=== PATIENT | male | born 1940 | race Caucasian/White ===

== ENCOUNTER 2017-09-03 11:58 | Inpatient (IN) | payer OTHER ==
[~2017-09-03] VITALS: Ht 177.8 cm; Wt 133.5 kg
[2017-09-03] MEDS ORDERED: SODIUM CHLORIDE FLUSH 10ML SYR IVF ONE (12:30)
[2017-09-03] MEDS ORDERED: PLEASE ENTER ALLERGIES MC SCH ×2 (12:30)
[2017-09-03] MEDS ORDERED: PLEASE ENTER HEIGHT AND WEIGHT MC SCH (12:30)
[2017-09-03 12:56] LABS: HEMOGLOBIN 13.1 g/dL (13.7-18.0); WHITE BLOOD COUNT 10.4 x10^3/uL (3.4-10)
[2017-09-03 13:05] LABS: BLOOD UREA NITROGEN 27 mg/dL (7-18)
[2017-09-03 13:10] LABS: ASPARTATE AMINO TRANSFERASE 13 U/L (15-37)
[2017-09-03 13:11] LABS: IS PT STATUS REG ER OR PRE ER? YES
[2017-09-03] MEDS ORDERED: OMNIPAQUE 350 MG/ML, 100ML BOTTLE ONE (13:55)
[2017-09-03] MEDS ORDERED: BISACODYL 10 MG SUPP PR PRN (17:30)
[2017-09-03] MEDS ORDERED: ONDANSETRON 2MG/ML, 2ML IVPush PRN (17:30)
[2017-09-03] MEDS ORDERED: ENALAPRILAT 1.25 MG/ML, 2ML IVPush PRN (17:30)
[2017-09-03] MEDS ORDERED: hydrALAzine 20 MG/ML, 1ML IVPush PRN (17:30)
[2017-09-03] MEDS ORDERED: OXYcodone IR 5MG TABLET PO PRN (17:30)
[2017-09-03] MEDS ORDERED: morphine SULFATE 10 MG/ML, 1ML IVPush PRN (17:30)
[2017-09-03] MEDS ORDERED: POLYETHYLENE GLYCOL 17 GM PACKET PO PRN (17:30)
[2017-09-03] MEDS ORDERED: AMLO10TA2 PO (17:40)
[2017-09-03] MEDS ORDERED: ASPI-650 PO (17:40)
[2017-09-03] MEDS ORDERED: LATA2.5D2 EACHEYE (17:40)
[2017-09-03] MEDS ORDERED: OMEP-110 PO (17:40)
[2017-09-03] MEDS ORDERED: FURO20TA3 PO (17:40)
[2017-09-03] MEDS ORDERED: METO25TA35 PO (17:40)
[2017-09-03] MEDS ORDERED: CALC-545 PO (17:40)
[2017-09-03] MEDS ORDERED: PRED5TAB PO (17:40)
[2017-09-03] MEDS ORDERED: CHOL2000 PO (17:40)
[2017-09-03] MEDS ORDERED: IBUP-1223 PO (17:40)
[2017-09-03] MEDS ORDERED: ABIR250T PO (17:40)
[2017-09-03] MEDS ORDERED: POTA99TA24 PO (17:40)
[2017-09-03] MEDS ORDERED: HUM100VI SQ (17:40)
[2017-09-03] MEDS ORDERED: METF500T4 PO (17:40)
[2017-09-03] MEDS: SODIUM CHLORIDE 0.9% 1,000 ML IV SCH (18:42)
[2017-09-03] MEDS ORDERED: METOPROLOL TARTRATE 25 MG TABLET ONE (19:21)
[2017-09-03 19:38] VITALS: BP 135/79
[2017-09-03] MEDS: VITAMIN D3 PO SCH (19:48)
[2017-09-03] MEDS: [UNRECOGNIZED DRUG - OTHER] PO SCH (19:48)
[2017-09-03] MEDS: HEPARIN 5,000 UNITS/ML, 1ML SQ SCH (19:48)
[2017-09-03] MEDS: METOPROLOL TARTRATE 25 MG TABLET PO SCH (19:48)
[2017-09-03] MEDS: CALCIUM CARBONATE PO SCH (19:48)
[2017-09-03 19:53] VITALS: BP 153/53
[2017-09-03 20:31] VITALS: BP 177/131
[2017-09-03 20:32] VITALS: BP 145/104
[2017-09-03] MEDS: INSULIN ASPART 100 UNITS/ML, PEN SQ-INSULIN SCH (21:27)
[2017-09-04 01:34] VITALS: BP 135/83
[2017-09-04] MEDS ORDERED: SITA25TA PO (02:14)
[2017-09-04] MEDS: ASPIRIN 325 MG TABLET EC PO SCH ×2 (02:58→21:16)
[2017-09-04] MEDS: SODIUM CHLORIDE 0.9% 1,000 ML IV SCH (03:55)
[2017-09-04] MEDS: HEPARIN 5,000 UNITS/ML, 1ML SQ SCH ×3 (03:55→21:10)
[2017-09-04 05:51] LABS: HEMATOCRIT 36.1 % (39.2-51.8); HEMOGLOBIN 11.9 g/dL (13.7-18.0); WHITE BLOOD COUNT 7.6 x10^3/uL (3.4-10)
[2017-09-04 06:32] LABS: ASPARTATE AMINO TRANSFERASE 11 U/L (15-37); BLOOD UREA NITROGEN 21 mg/dL (7-18)
[2017-09-04] MEDS: INSULIN ASPART 100 UNITS/ML, PEN SQ-INSULIN SCH ×4 (07:00→21:13)
[2017-09-04 08:00] VITALS: BP 145/76
[2017-09-04] MEDS: [UNRECOGNIZED DRUG - OTHER] PO SCH ×2 (08:08→21:00)
[2017-09-04] MEDS: TEMPLATE NON-FORMULARY MED. (Cholecalciferol (Vitamin D3)** (Vitamin D-3**) 2,000 UNIT) PO SCH (08:08)
[2017-09-04] MEDS: VITAMIN D3 PO SCH ×2 (08:08→21:00)
[2017-09-04] MEDS: CALCIUM CARBONATE PO SCH ×2 (08:08→21:00)
[2017-09-04] MEDS: SENNA/DOCUSATE TABLET PO SCH (08:49)
[2017-09-04] MEDS ORDERED: LATANOPROST OPHTH 0.005%, 2.5ML EACHEYE SCH (09:00)
[2017-09-04] MEDS ORDERED: ASPIRIN 325 MG TABLET EC PO SCH (09:00)
[2017-09-04] MEDS ORDERED: POTASSIUM CHLORIDE 20 MEQ TAB.ER.PRT PO ONE (10:00)
[2017-09-04] MEDS: OMEPRAZOLE 20 MG CAPSULE.DR PO SCH (10:20)
[2017-09-04] MEDS: METOPROLOL TARTRATE 25 MG TABLET PO SCH ×2 (10:20→21:12)
[2017-09-04] MEDS: AMLODIPINE 5 MG TABLET PO SCH (11:18)
[2017-09-04 14:05] VITALS: BP_SYST 133; BP_SYST 137; BP_SYST 144; BP_DIAS 75; BP_DIAS 79; BP_DIAS 81
[2017-09-04 19:55] VITALS: BP 164/83
[2017-09-04] MEDS ORDERED: SIMVASTATIN 20 MG TABLET PO SCH (21:00)
[2017-09-05 00:41] VITALS: BP 128/76
[2017-09-05 05:09] LABS: HEMATOCRIT 35.4 % (39.2-51.8); HEMOGLOBIN 11.6 g/dL (13.7-18.0); WHITE BLOOD COUNT 6.2 x10^3/uL (3.4-10)
[2017-09-05 05:22] LABS: ASPARTATE AMINO TRANSFERASE 14 U/L (15-37); BLOOD UREA NITROGEN 14 mg/dL (7-18)
[2017-09-05] MEDS: HEPARIN 5,000 UNITS/ML, 1ML SQ SCH ×2 (05:51→11:33)
[2017-09-05] MEDS: INSULIN ASPART 100 UNITS/ML, PEN SQ-INSULIN SCH ×3 (07:00→17:19)
[2017-09-05 08:25] VITALS: BP 141/80
[2017-09-05] MEDS: SENNA/DOCUSATE TABLET PO SCH (09:00)
[2017-09-05] MEDS: VITAMIN D3 PO SCH (09:00)
[2017-09-05] MEDS: [UNRECOGNIZED DRUG - OTHER] PO SCH (09:00)
[2017-09-05] MEDS: TEMPLATE NON-FORMULARY MED. (Cholecalciferol (Vitamin D3)** (Vitamin D-3**) 2,000 UNIT) PO SCH (09:00)
[2017-09-05] MEDS: CALCIUM CARBONATE PO SCH (09:00)
[2017-09-05] MEDS: METOPROLOL TARTRATE 25 MG TABLET PO SCH (10:39)
[2017-09-05] MEDS: AMLODIPINE 5 MG TABLET PO SCH (10:40)
[2017-09-05] MEDS: OMEPRAZOLE 20 MG CAPSULE.DR PO SCH (10:49)
[2017-09-05] MEDS ORDERED: SODIUM CHLORIDE 0.9% 1,000 ML IV SCH (11:00)
[2017-09-05 11:25] VITALS: BP 144/85
[2017-09-05 11:26] VITALS: BP 159/85
[2017-09-05 11:30] VITALS: BP 153/80
[2017-09-05] MEDS ORDERED: POTA20PA25 PO (15:25)
[2017-09-05 15:37] VITALS: BP 148/73
== END 2017-09-05 20:50 | disposition home or self-care (01) | DRG 641 ==
LOC: ED 14:48 → EDIP 14:49 → ED 15:27 → 5SO 16:32
PROVIDERS: ADMIT Hospitalist; ATTEND Hospitalist
PROC: 5A09357 Assistance with Respiratory Ventilation, Less than 24 Consecutive Hours, Continuous Positive Airway Pressure (ICD-10-PCS; principal; 2017-09-04)
DX: E86.0 Dehydration (principal); C79.51 Secondary malignant neoplasm of bone; I25.3 Aneurysm of heart; E11.9 Type 2 diabetes mellitus without complications; E78.5 Hyperlipidemia, unspecified; D72.829 Elevated white blood cell count, unspecified; J44.9 Chronic obstructive pulmonary disease, unspecified; H40.9 Unspecified glaucoma; I10 Essential (primary) hypertension; Z85.46 Personal history of malignant neoplasm of prostate; Z85.830 Personal history of malignant neoplasm of bone; Z86.12 Personal history of poliomyelitis; Z87.891 Personal history of nicotine dependence; Z90.79 Acquired absence of other genital organ(s); Z92.21 Personal history of antineoplastic chemotherapy; Z92.3 Personal history of irradiation; Z90.49 Acquired absence of other specified parts of digestive tract; Z88.2 Allergy status to sulfonamides; Z88.8 Allergy status to other drugs, medicaments and biological substances; Z79.899 Other long term (current) drug therapy; Z79.82 Long term (current) use of aspirin
CPT/HCPCS: 36415; 70450; 70551; 71010; 71275; 80053; 80061; 81001; 82306; 82607; 82962; 83036; 83735; 83880; 84439; 84443; 84484; 85025; 85610; 85730; 87040; 93005; 93306; 93880; 99285; J1644; J1815; Q9967; J7030; J7512

== ENCOUNTER 2019-04-23 20:47 | Emergency (ER) | payer OTHER, MEDICARE ==
[~2019-04-23] VITALS: Ht 182.9 cm; Wt 122.0 kg
[~2019-04-23 20:47] MED LIST: ABIR250T PO; AMLO10TA8 PO; ASPI-650 PO; CALC-545 PO; CHOL2000 PO; FURO20TA3 PO; HUM100VI SQ; IBUP-1223 PO; LATA2.5D2 EACHEYE; METF500T17 PO; METO25TA35 PO; OMEP-110 PO; POTA20PA25 PO; POTA99TA24 PO; PRED5TAB PO; SITA25TA PO
[2019-04-23] MEDS ORDERED: KETOROLAC 30 MG/1 ML IM ONE (21:30)
--- NOTE | 2019-04-23 21:31 | NUR ---
Pt taken to [facility] on [facility] with hallie.
[2019-04-23] MEDS ORDERED: KETOROLAC 60 MG/2 ML ONE (21:35)
--- NOTE | 2019-04-23 22:18 | NUR ---
Pt resting comfortably on gurney with care transport nurse at bedside. Pt up for recheck at this time.
[2019-04-23 23:07] VITALS: BP 149/59
== END 2019-04-23 23:23 | disposition home or self-care (01) ==
LOC: ED 23:12
DX: M25.551 Pain in right hip (principal); M54.2 Cervicalgia; C79.82 Secondary malignant neoplasm of genital organs; C41.4 Malignant neoplasm of pelvic bones, sacrum and coccyx; M89.751 Major osseous defect, right pelvic region and thigh; C79.51 Secondary malignant neoplasm of bone; Z87.891 Personal history of nicotine dependence; J44.9 Chronic obstructive pulmonary disease, unspecified; I10 Essential (primary) hypertension; E11.9 Type 2 diabetes mellitus without complications; Z88.5 Allergy status to narcotic agent; Z88.8 Allergy status to other drugs, medicaments and biological substances; Z88.1 Allergy status to other antibiotic agents
CPT/HCPCS: 72125; 72192; 96372; 99284; J1885

== ENCOUNTER 2019-11-10 22:25 | Inpatient (IN) | payer MEDICARE ==
[~2019-11-10] VITALS: Ht 177.8 cm; Wt 117.9 kg
[2019-11-10 22:53] LABS: BASOPHILS # (AUTO) 0.02 x10^3/uL (0-0.1); BASOPHILS % (AUTO) 0 % (0-1); EOSINOPHILS # (AUTO) 0.32 x10^3/uL (0-0.4); EOSINOPHILS % (AUTO) 7 % (1-7); LYMPHOCYTES # (AUTO) 0.63 x10^3/uL (1-3.4); LYMPHOCYTES % (AUTO) 13 % (22-44); MD NO; MEAN CORPUSCULAR HEMOGLOBIN 29.7 pg (27.5-34.5); MEAN CORPUSCULAR HGB CONC 32.8 g/dL (33.2-36.2); MEAN CORPUSCULAR VOLUME 90.6 fL (81-97); MEAN PLATELET VOLUME 7.1 fL (7.4-10.4); MONOCYTES # (AUTO) 0.38 x10^3/uL (0.2-0.8); MONOCYTES % (AUTO) 8 % (2-9); NEUTROPHILS # (AUTO) 3.58 x10^3/uL (1.8-6.8); NEUTROPHILS % (AUTO) 73 % (42-75); PLATELET COUNT 439 x10^3/uL (130-400); RED BLOOD COUNT 3.61 x10^6/uL (4.38-5.82); RED CELL DISTRIBUTION WIDTH 17.8 % (9.4-14.8)
[2019-11-10] MEDS ORDERED: PANTOPRAZOLE 80 MG in SODIUM CHLORIDE 0.9% 50 ML IV ONE (23:00)
[2019-11-10] MEDS ORDERED: PANTOPRAZOLE 80 MG in SODIUM CHLORIDE 0.9% 100 ML IV SCH (23:00)
[2019-11-10 23:05] LABS: ALANINE AMINOTRANSFERASE 28 U/L (12-78); ALBUMIN 2.5 g/dL (3.4-5.0); ANION GAP 10 mmol/L (5-15); CHLORIDE 107 mmol/L (98-107); CREATININE 0.96 mg/dL (0.7-1.3)
[2019-11-10 23:10] LABS: ALKALINE PHOSPHATASE 94 U/L (45-117); BILIRUBIN,TOTAL 0.3 mg/dL (0.2-1.0); TOTAL PROTEIN 7.2 g/dL (6.4-8.2); TROPONIN I < 0.015 ng/mL (0.000-0.045)
[2019-11-11] MEDS ORDERED: OMNIPAQUE 350 MG/ML, 100ML BOTTLE ONE
--- NOTE | 2019-11-11 00:06 | NUR ---
Patient BIB [facility] from home for blood in stool x1-2 weeks. Patient states he saw his PCP for the same; it was confirmed that he had blood in his stool and he was referred to GI. Since then, patient has not been able to get into GI for an appt and the bleeding has continued and is now weak. He has mild cramping in his low abd. He states last week, he "lost a couple days." It was Wednesday and he went to bed. When he woke up, it was Wednesday; he is not sure what happened in those days. Patient is in NAD. Respirations even and unlabored.
[2019-11-11] MEDS ORDERED: CEFTRIAXONE PMX 1GM/50ML 50 ML ONE (01:16)
[2019-11-11] MEDS ORDERED: CEFTRIAXONE PMX 1GM/50ML 50 ML IV ONE (01:30)
[2019-11-11] MEDS ORDERED: AZITHROMYCIN 500 MG in SODIUM CHLORIDE 0.9% 250 ML IV ONE (01:30)
[2019-11-11] MEDS ORDERED: PANTOPRAZOLE 80 MG in SODIUM CHLORIDE 0.9% 100 ML IV SCH (02:30)
[2019-11-11] MEDS ORDERED: hydrALAzine 20 MG/ML, 1ML IV PRN (02:30)
[2019-11-11] MEDS: AZITHROMYCIN 500 MG in SODIUM CHLORIDE 0.9% 250 ML IV SCH (02:34)
--- NOTE | 2019-11-11 04:21 | NUR ---
Report given to Lorene. Patient to be transferred to room 438.
[2019-11-11 04:46] VITALS: BP 146/91
[2019-11-11] MEDS: METOPROLOL TARTRATE 25 MG TABLET PO SCH ×2 (05:46→18:05)
[2019-11-11] MEDS: GUAIFENESIN 200 MG TABLET PO SCH ×4 (05:46→22:14)
[2019-11-11] MEDS: CEFTRIAXONE PMX 2GM/50ML 50 ML IV SCH (06:18)
[2019-11-11] MEDS: INSULIN LISPRO 100 UNITS/ML, PEN SQ-INSULIN SCH ×4 (07:00→21:00)
[2019-11-11 07:09] VITALS: BP 119/60
[2019-11-11] MEDS: LATANOPROST OPHTH 0.005%, 2.5ML EACHEYE SCH (09:00)
[2019-11-11] MEDS: AMLODIPINE 10 MG TAB PO SCH ×2 (09:00→10:35)
[2019-11-11] MEDS ORDERED: MIDAZOLAM 1 MG/ML, 5ML ONE (09:11)
[2019-11-11] MEDS ORDERED: FENTANYL PF 100 MCG/2ML ONE (09:11)
[2019-11-11 10:25] VITALS: BP 141/72
[2019-11-11] MEDS: POTASSIUM CHLORIDE 20 MEQ PACKET PO SCH (10:35)
[2019-11-11] MEDS: CHOLECALCIFEROL 1,000 UNIT TABLET PO SCH (10:35)
[2019-11-11] MEDS: PANTOPRAZOLE 40 MG IV IVPush SCH ×2 (13:25→23:50)
[2019-11-11 14:00] VITALS: BP 145/75
[2019-11-11] MEDS ORDERED: GOLYTELY 4,000ML ORAL.SOL PO ONE (18:00)
[2019-11-11 18:33] VITALS: BP 151/75
[2019-11-11] MEDS: TEMPLATE NON-FORMULARY MED. (Abiraterone Acetate** (Zytiga**) 1,000 MG) HOMEMEDPO SCH (21:00)
[2019-11-12 00:28] VITALS: BP 121/68
[2019-11-12] MEDS: AZITHROMYCIN 500 MG in SODIUM CHLORIDE 0.9% 250 ML IV SCH (02:33)
[2019-11-12 05:11] LABS: BASOPHILS # (AUTO) 0.01 x10^3/uL (0-0.1); BASOPHILS % (AUTO) 0 % (0-1); EOSINOPHILS # (AUTO) 0.39 x10^3/uL (0-0.4); EOSINOPHILS % (AUTO) 9 % (1-7); LYMPHOCYTES # (AUTO) 0.54 x10^3/uL (1-3.4); LYMPHOCYTES % (AUTO) 12 % (22-44); MD NO; MEAN CORPUSCULAR HEMOGLOBIN 29.4 pg (27.5-34.5); MEAN CORPUSCULAR HGB CONC 32.3 g/dL (33.2-36.2); MEAN CORPUSCULAR VOLUME 90.9 fL (81-97); MEAN PLATELET VOLUME 7.3 fL (7.4-10.4); MONOCYTES # (AUTO) 0.35 x10^3/uL (0.2-0.8); MONOCYTES % (AUTO) 8 % (2-9); NEUTROPHILS # (AUTO) 3.26 x10^3/uL (1.8-6.8); NEUTROPHILS % (AUTO) 72 % (42-75); PLATELET COUNT 416 x10^3/uL (130-400); RED CELL DISTRIBUTION WIDTH 17.9 % (9.4-14.8)
[2019-11-12 05:22] LABS: ANION GAP 9 mmol/L (5-15); CALCIUM 8.1 mg/dL (8.5-10.1); CHLORIDE 106 mmol/L (98-107); CREATININE 0.71 mg/dL (0.7-1.3)
[2019-11-12] MEDS: CEFTRIAXONE PMX 2GM/50ML 50 ML IV SCH (06:07)
[2019-11-12] MEDS: METOPROLOL TARTRATE 25 MG TABLET PO SCH ×2 (06:07→17:13)
[2019-11-12] MEDS: INSULIN LISPRO 100 UNITS/ML, PEN SQ-INSULIN SCH ×4 (07:00→19:34)
[2019-11-12] MEDS ORDERED: MIDAZOLAM 1 MG/ML, 5ML ONE (07:47)
[2019-11-12] MEDS ORDERED: FENTANYL PF 100 MCG/2ML ONE (07:47)
[2019-11-12 07:51] VITALS: BP 124/65
[2019-11-12] MEDS: CHOLECALCIFEROL 1,000 UNIT TABLET PO SCH (11:12)
[2019-11-12] MEDS: GUAIFENESIN 200 MG TABLET PO SCH ×3 (11:12→21:12)
[2019-11-12] MEDS: LATANOPROST OPHTH 0.005%, 2.5ML EACHEYE SCH (11:13)
[2019-11-12] MEDS: AMLODIPINE 10 MG TAB PO SCH (11:13)
[2019-11-12] MEDS: PANTOPRAZOLE 40 MG IV IVPush SCH ×2 (11:13→23:36)
[2019-11-12] MEDS: POTASSIUM CHLORIDE 20 MEQ PACKET PO SCH (11:21)
[2019-11-12 13:31] VITALS: BP 129/75
[2019-11-12 14:12] LABS: TROPONIN I < 0.015 ng/mL (0.000-0.045)
[2019-11-12 14:44] LABS: FREE T4 (FREE THYROXINE) 1.15 ng/dL (0.76-1.46)
[2019-11-12 16:28] LABS: TROPONIN I < 0.015 ng/mL (0.000-0.045)
[2019-11-12 18:57] VITALS: BP 115/71
[2019-11-12] MEDS: TEMPLATE NON-FORMULARY MED. (Abiraterone Acetate** (Zytiga**) 1,000 MG) HOMEMEDPO SCH (21:00)
[2019-11-13 01:08] VITALS: BP 125/71
[2019-11-13] MEDS: AZITHROMYCIN 500 MG in SODIUM CHLORIDE 0.9% 250 ML IV SCH (02:40)
[2019-11-13 05:28] LABS: BASOPHILS # (AUTO) 0.02 x10^3/uL (0-0.1); BASOPHILS % (AUTO) 0 % (0-1); EOSINOPHILS # (AUTO) 0.41 x10^3/uL (0-0.4); EOSINOPHILS % (AUTO) 10 % (1-7); LYMPHOCYTES # (AUTO) 0.52 x10^3/uL (1-3.4); LYMPHOCYTES % (AUTO) 12 % (22-44); MD NO; MEAN CORPUSCULAR HEMOGLOBIN 29.5 pg (27.5-34.5); MEAN CORPUSCULAR HGB CONC 32.5 g/dL (33.2-36.2); MEAN CORPUSCULAR VOLUME 90.8 fL (81-97); MEAN PLATELET VOLUME 7.2 fL (7.4-10.4); MONOCYTES % (AUTO) 7 % (2-9); NEUTROPHILS # (AUTO) 3.08 x10^3/uL (1.8-6.8); NEUTROPHILS % (AUTO) 71 % (42-75); PLATELET COUNT 411 x10^3/uL (130-400); RED BLOOD COUNT 3.28 x10^6/uL (4.38-5.82); RED CELL DISTRIBUTION WIDTH 17.6 % (9.4-14.8)
[2019-11-13 05:46] LABS: ANION GAP 7 mmol/L (5-15); CALCIUM 8.3 mg/dL (8.5-10.1); CHLORIDE 108 mmol/L (98-107); CREATININE 0.76 mg/dL (0.7-1.3)
[2019-11-13] MEDS: CEFTRIAXONE PMX 2GM/50ML 50 ML IV SCH (06:17)
[2019-11-13] MEDS: METOPROLOL TARTRATE 25 MG TABLET PO SCH (06:23)
[2019-11-13 07:15] VITALS: BP 130/74
[2019-11-13] MEDS: INSULIN LISPRO 100 UNITS/ML, PEN SQ-INSULIN SCH ×3 (07:21→15:19)
[2019-11-13] MEDS: POTASSIUM CHLORIDE 20 MEQ PACKET PO SCH (08:10)
[2019-11-13] MEDS: LATANOPROST OPHTH 0.005%, 2.5ML EACHEYE SCH (08:11)
[2019-11-13] MEDS: GUAIFENESIN 200 MG TABLET PO SCH ×2 (08:11→15:19)
[2019-11-13] MEDS: CHOLECALCIFEROL 1,000 UNIT TABLET PO SCH (08:11)
[2019-11-13] MEDS: AMLODIPINE 10 MG TAB PO SCH (08:11)
[2019-11-13] MEDS ORDERED: POTASSIUM CHLORIDE 20 MEQ TAB.ER.PRT PO ONE (09:00)
[2019-11-13] MEDS ORDERED: MAGNESIUM SULFATE PMX 2GM/50ML 50 ML IV ONE (09:30)
[2019-11-13] MEDS: PANTOPRAZOLE 40 MG IV IVPush SCH (11:06)
[2019-11-13 14:13] VITALS: BP 145/77
[2019-11-13] MEDS ORDERED: CEFD300C37 PO (14:26)
[2019-11-13] MEDS ORDERED: PANT40TA3 PO ×2 (14:28)
[2019-11-13] MEDS ORDERED: PANTOPROZOLE 40MG TABLET PO SCH (21:00)
[2019-11-14] MEDS ORDERED: POTA20TA89 PO (16:51)
[2019-11-14] MEDS ORDERED: CELE100C PO (16:52)
[2019-11-14] MEDS ORDERED: DENO120V SQ (16:54)
[2019-11-14] MEDS ORDERED: OMEG-72 PO (16:57)
[2019-11-14] MEDS ORDERED: VITA1TAB19 PO (16:58)
== END 2019-11-13 17:48 | disposition home health service (06) | DRG 377 ==
LOC: ED 23:19 → EDIP 11-11 01:26 → 4NW 11-11 04:42
PROVIDERS: ADMIT Internal Medicine; ATTEND Internal Medicine
PROC: 5A09357 Assistance with Respiratory Ventilation, Less than 24 Consecutive Hours, Continuous Positive Airway Pressure (ICD-10-PCS; 2019-11-11)
PROC: 0DJ08ZZ Inspection of Upper Intestinal Tract, Via Natural or Artificial Opening Endoscopic (ICD-10-PCS; principal; 2019-11-11 09:00)
PROC: 0DBK8ZZ Excision of Ascending Colon, Via Natural or Artificial Opening Endoscopic (ICD-10-PCS; 2019-11-12)
PROC: 0DBL8ZZ Excision of Transverse Colon, Via Natural or Artificial Opening Endoscopic (ICD-10-PCS; 2019-11-12)
PROC: 0DBH8ZZ Excision of Cecum, Via Natural or Artificial Opening Endoscopic (ICD-10-PCS; 2019-11-12)
PROC: 5A09357 Assistance with Respiratory Ventilation, Less than 24 Consecutive Hours, Continuous Positive Airway Pressure (ICD-10-PCS; 2019-11-12)
PROC: 5A09357 Assistance with Respiratory Ventilation, Less than 24 Consecutive Hours, Continuous Positive Airway Pressure (ICD-10-PCS; 2019-11-13)
DX: K57.31 Diverticulosis of large intestine without perforation or abscess with bleeding (principal); J18.9 Pneumonia, unspecified organism; J96.01 Acute respiratory failure with hypoxia; I50.32 Chronic diastolic (congestive) heart failure; C79.51 Secondary malignant neoplasm of bone; J44.0 Chronic obstructive pulmonary disease with (acute) lower respiratory infection; D64.9 Anemia, unspecified; E66.01 Morbid (severe) obesity due to excess calories; K31.7 Polyp of stomach and duodenum; Z88.2 Allergy status to sulfonamides; Z88.8 Allergy status to other drugs, medicaments and biological substances; C61 Malignant neoplasm of prostate; E11.9 Type 2 diabetes mellitus without complications; E78.5 Hyperlipidemia, unspecified; E83.42 Hypomagnesemia; E87.6 Hypokalemia; I11.0 Hypertensive heart disease with heart failure; K63.5 Polyp of colon; T45.1X5A Adverse effect of antineoplastic and immunosuppressive drugs, initial encounter; Y92.89 Other specified places as the place of occurrence of the external cause; Z79.82 Long term (current) use of aspirin; Z80.0 Family history of malignant neoplasm of digestive organs; Z80.51 Family history of malignant neoplasm of kidney; Z82.49 Family history of ischemic heart disease and other diseases of the circulatory system; Z86.12 Personal history of poliomyelitis; Z87.891 Personal history of nicotine dependence; Z90.79 Acquired absence of other genital organ(s); Z68.37 Body mass index [BMI] 37.0-37.9, adult
CPT/HCPCS: 36415; 71045; 71275; 80048; 80053; 82962; 83690; 83735; 84100; 84439; 84443; 84484; 85014; 85018; 85025; 86850; 86900; 87040; 88305; 93005; 96374; G0378; J0456; J0696; J2250; J3010; Q9967; C9113; J3475; J7050; J7512

== ENCOUNTER 2019-11-14 16:29 | Emergency (ER) | payer MEDICARE ==
[~2019-11-14] VITALS: Ht 177.8 cm; Wt 118.0 kg
[~2019-11-14 16:29] MED LIST changes: +CEFD300C37 PO; +PANT40TA3 PO
[2019-11-14] MEDS ORDERED: POTA20TA89 PO (16:51)
[2019-11-14] MEDS ORDERED: CELE100C PO (16:52)
[2019-11-14] MEDS ORDERED: DENO120V SQ (16:54)
[2019-11-14] MEDS ORDERED: OMEG-72 PO (16:57)
[2019-11-14] MEDS ORDERED: VITA1TAB19 PO (16:58)
[2019-11-14 17:16] LABS: ALBUMIN 2.8 g/dL (3.4-5.0); ANION GAP 5 mmol/L (5-15); CALCIUM 8.8 mg/dL (8.5-10.1); CHLORIDE 111 mmol/L (98-107); CREATININE 0.88 mg/dL (0.7-1.3)
[2019-11-14 17:20] LABS: BASOPHILS # (AUTO) 0.02 x10^3/uL (0-0.1); BASOPHILS % (AUTO) 0 % (0-1); EOSINOPHILS # (AUTO) 0.12 x10^3/uL (0-0.4); EOSINOPHILS % (AUTO) 2 % (1-7); LYMPHOCYTES # (AUTO) 0.49 x10^3/uL (1-3.4); LYMPHOCYTES % (AUTO) 10 % (22-44); MD NO; MEAN CORPUSCULAR HEMOGLOBIN 29.3 pg (27.5-34.5); MEAN CORPUSCULAR HGB CONC 32.4 g/dL (33.2-36.2); MEAN CORPUSCULAR VOLUME 90.5 fL (81-97); MEAN PLATELET VOLUME 6.6 fL (7.4-10.4); MONOCYTES % (AUTO) 6 % (2-9); NEUTROPHILS # (AUTO) 4.21 x10^3/uL (1.8-6.8); NEUTROPHILS % (AUTO) 82 % (42-75); PLATELET COUNT 507 x10^3/uL (130-400); RED BLOOD COUNT 3.76 x10^6/uL (4.38-5.82)
[2019-11-14 18:24] VITALS: BP 149/73
--- NOTE | 2019-11-14 18:25 | NUR ---
Patient bgiven discharge instructions and they have confirmed that they understand the instructions. Patient leaving with family member.
== END 2019-11-14 18:26 | disposition home or self-care (01) ==
LOC: ED 18:15
DX: K92.2 Gastrointestinal hemorrhage, unspecified (principal); I10 Essential (primary) hypertension; E11.9 Type 2 diabetes mellitus without complications; J44.9 Chronic obstructive pulmonary disease, unspecified
CPT/HCPCS: 36415; 80048; 82040; 85025; 93005; 99284

== ENCOUNTER 2020-03-21 15:17 | Observation (INO) | payer MEDICARE, OTHER ==
[~2020-03-21] VITALS: Ht 177.8 cm; Wt 115.6 kg
[~2020-03-21 15:17] MED LIST changes: +CELE100C PO; +DENO120V SQ; +OMEG-72 PO; +POTA20TA89 PO; +VITA1TAB19 PO
--- NOTE | 2020-03-21 15:32 | NUR ---
BIB [facility] FROM HOME. NURSE AT HOUSE WHEN PT STATED SUDDEN ONSENT CP, INDIGESTION, LIGHT HEADED. EFFICIENCY CLERK: NURSE 324 ASA, [facility] PIV 20G RAC. HX UNSTABLE ANGINA. PT CONNECTED TO MONITORING. CALL LIGHT IN REACH. PROVIDER AT BEDSIDE.
[2020-03-21] MEDS ORDERED: IBUP-1223 PO (15:51)
[2020-03-21] MEDS ORDERED: ASCO500T8 PO (15:51)
[2020-03-21] MEDS ORDERED: POTA20TA89 PO (15:51)
[2020-03-21] MEDS ORDERED: EZET10TA70 PO (15:51)
[2020-03-21] MEDS ORDERED: KETO10TA PO (15:51)
[2020-03-21 16:02] LABS: BASOPHILS # (AUTO) 0.05 x10^3/uL (0-0.1); BASOPHILS % (AUTO) 1 % (0-1); EOSINOPHILS # (AUTO) 0.19 x10^3/uL (0-0.4); EOSINOPHILS % (AUTO) 3 % (1-7); LYMPHOCYTES # (AUTO) 0.96 x10^3/uL (1-3.4); LYMPHOCYTES % (AUTO) 16 % (22-44); MD NO; MEAN CORPUSCULAR HEMOGLOBIN 29.7 pg (27.5-34.5); MEAN CORPUSCULAR HGB CONC 32.6 g/dL (33.2-36.2); MEAN CORPUSCULAR VOLUME 91.2 fL (81-97); MEAN PLATELET VOLUME 6.4 fL (7.4-10.4); MONOCYTES # (AUTO) 0.43 x10^3/uL (0.2-0.8); MONOCYTES % (AUTO) 7 % (2-9); NEUTROPHILS # (AUTO) 4.37 x10^3/uL (1.8-6.8); NEUTROPHILS % (AUTO) 73 % (42-75); PLATELET COUNT 461 x10^3/uL (130-400); RED BLOOD COUNT 3.73 x10^6/uL (4.38-5.82); RED CELL DISTRIBUTION WIDTH 17.5 % (9.4-14.8)
[2020-03-21 16:10] LABS: ALBUMIN 3.1 g/dL (3.4-5.0); ANION GAP 9 mmol/L (5-15); CALCIUM 8.8 mg/dL (8.5-10.1); CHLORIDE 106 mmol/L (98-107)
[2020-03-21 16:16] LABS: CREATININE 0.96 mg/dL (0.7-1.3); TROPONIN I < 0.015 ng/mL (0.000-0.045)
--- NOTE | 2020-03-21 16:26 | NUR ---
PT RESTING COMFORTABLY ON GURNEY, WATCHING TV.
--- NOTE | 2020-03-21 16:34 | NUR ---
ALL RESULTS ARE BACK AT THIS TIME. CHART UP FOR RECHECK.
--- NOTE | 2020-03-21 16:36 | NUR ---
PT TO BE ADMITTED
[2020-03-21] MEDS ORDERED: OMNIPAQUE 350 MG/ML, 100ML BOTTLE ONE (17:01)
--- NOTE | 2020-03-21 17:46 | NUR ---
ADDIE MCCORD DELIVERED. HOSPITALIST AT BEDSIDE FOR ASSESSMENT.
--- NOTE | 2020-03-21 17:53 | NUR ---
REPORT GIVEN TO KATIA LANTIGUA
[2020-03-21] MEDS ORDERED: ACETAMINOPHEN 325 MG TABLET PO PRN (18:00)
[2020-03-21] MEDS ORDERED: POLYETHYLENE GLYCOL 17 GM PACKET PO PRN (18:00)
[2020-03-21] MEDS ORDERED: DOCUSATE 100 MG CAPSULE PO PRN (18:00)
[2020-03-21] MEDS ORDERED: ENALAPRILAT 1.25 MG/ML, 2ML IVPush PRN (18:00)
[2020-03-21] MEDS ORDERED: GLUCAGON 1 MG IM PRN (18:00)
[2020-03-21] MEDS ORDERED: DEXTROSE 4 GM TAB.CHEW PO PRN (18:00)
[2020-03-21] MEDS ORDERED: hydrALAzine 20 MG/ML, 1ML IVPush PRN (18:00)
[2020-03-21] MEDS ORDERED: ONDANSETRON 2MG/ML, 2ML IVPush PRN (18:00)
[2020-03-21] MEDS ORDERED: SODIUM CHLORIDE 0.9% 1,000 ML IV SCH (18:00)
[2020-03-21] MEDS ORDERED: DEXTROSE 50%, 50ML SYRINGE IVPush PRN (18:00)
[2020-03-21] MEDS ORDERED: KETOROLAC 30 MG/1 ML IV PRN (18:00)
[2020-03-21] MEDS ORDERED: BISACODYL 10 MG SUPP PR PRN (18:00)
[2020-03-21] MEDS ORDERED: NITROGLYCERIN 0.4 MG BOTTLE (25 TABS) SL PRN (18:00)
[2020-03-21] MEDS ORDERED: ONDANSETRON ODT 4 MG PO PRN (18:00)
[2020-03-21 18:22] VITALS: BP 155/73
[2020-03-21 18:25] VITALS: BP 155/73
[2020-03-21 18:36] LABS: ALANINE AMINOTRANSFERASE 16 U/L (12-78); ALBUMIN 3.2 g/dL (3.4-5.0)
[2020-03-21 18:40] LABS: ALKALINE PHOSPHATASE 67 U/L (45-117); BILIRUBIN,TOTAL 0.2 mg/dL (0.2-1.0); TOTAL PROTEIN 7.6 g/dL (6.4-8.2); TROPONIN I < 0.015 ng/mL (0.000-0.045)
[2020-03-21 18:43] LABS: BILIRUBIN, DIRECT < 0.1 mg/dL (0.1-0.2); BILIRUBIN,INDIRECT 0.1 mg/dL (0.0-2.0)
[2020-03-21] MEDS ORDERED: ENOXAPARIN 40 MG/0.4 ML SQ SCH (19:00)
[2020-03-21] MEDS: INSULIN LISPRO 100 UNITS/ML, PEN SQ-INSULIN SCH (21:00)
[2020-03-21] MEDS: CALCIUM/VITAMIN D3 250-125 TABLET PO SCH (21:07)
[2020-03-21] MEDS: SODIUM CHLORIDE FLUSH 10ML SYR IVF SCH (21:08)
[2020-03-21] MEDS ORDERED: LATANOPROST OPHTH 0.005%, 2.5ML EACHEYE SCH (22:00)
[2020-03-22 00:35] VITALS: BP 121/67
[2020-03-22 00:36] LABS: TROPONIN I < 0.015 ng/mL (0.000-0.045)
[2020-03-22 06:08] LABS: BASOPHILS # (AUTO) 0.02 x10^3/uL (0-0.1); BASOPHILS % (AUTO) 0 % (0-1); EOSINOPHILS # (AUTO) 0.25 x10^3/uL (0-0.4); EOSINOPHILS % (AUTO) 6 % (1-7); LYMPHOCYTES # (AUTO) 0.61 x10^3/uL (1-3.4); LYMPHOCYTES % (AUTO) 14 % (22-44); MD NO; MEAN CORPUSCULAR HEMOGLOBIN 28.9 pg (27.5-34.5); MEAN CORPUSCULAR HGB CONC 32.2 g/dL (33.2-36.2); MEAN CORPUSCULAR VOLUME 89.9 fL (81-97); MEAN PLATELET VOLUME 6.4 fL (7.4-10.4); MONOCYTES # (AUTO) 0.34 x10^3/uL (0.2-0.8); MONOCYTES % (AUTO) 8 % (2-9); NEUTROPHILS # (AUTO) 3.27 x10^3/uL (1.8-6.8); NEUTROPHILS % (AUTO) 73 % (42-75); PLATELET COUNT 406 x10^3/uL (130-400); RED BLOOD COUNT 3.59 x10^6/uL (4.38-5.82); RED CELL DISTRIBUTION WIDTH 17.4 % (9.4-14.8)
[2020-03-22 06:11] LABS: ANION GAP 11 mmol/L (5-15); CALCIUM 9.1 mg/dL (8.5-10.1); CHLORIDE 106 mmol/L (98-107); CREATININE 0.74 mg/dL (0.7-1.3)
[2020-03-22] MEDS: INSULIN LISPRO 100 UNITS/ML, PEN SQ-INSULIN SCH ×3 (07:00→16:00)
[2020-03-22] MEDS: CALCIUM/VITAMIN D3 250-125 TABLET PO SCH (08:17)
[2020-03-22] MEDS ORDERED: REGADENOSON 0.4 MG/5 ML SYRINGE ONE (08:37)
[2020-03-22] MEDS: SODIUM CHLORIDE FLUSH 10ML SYR IVF SCH (09:00)
[2020-03-22] MEDS ORDERED: AMLODIPINE 10 MG TAB PO SCH (09:00)
[2020-03-22] MEDS ORDERED: EZETIMIBE 10 MG TABLET PO SCH (09:00)
[2020-03-22] MEDS ORDERED: ASCORBIC ACID 500 MG TABLET PO SCH (09:00)
[2020-03-22] MEDS ORDERED: OMEPRAZOLE 20 MG CAPSULE.DR PO SCH (09:00)
[2020-03-22 13:20] VITALS: BP 151/77
--- NOTE | 2020-03-22 13:31 | NUR ---
Do not anticipate need for COOK MORNING intervention at time of discharge. Addendum: 03/22/20 at 1331 by Comfort YOUNG Amended: Links added.
== END 2020-03-22 16:46 | disposition home or self-care (01) ==
LOC: ED 16:58 → INTOOBSV 17:17 → EDIP 17:17 → 5SO 18:20 → DCLOUNGE 03-22 16:34
PROVIDERS: ADMIT Internal Medicine; ATTEND Internal Medicine
DX: R07.89 Other chest pain (principal); R10.11 Right upper quadrant pain; E86.0 Dehydration; R19.7 Diarrhea, unspecified; D64.9 Anemia, unspecified; D47.3 Essential (hemorrhagic) thrombocythemia; E11.9 Type 2 diabetes mellitus without complications; I25.10 Atherosclerotic heart disease of native coronary artery without angina pectoris; I25.2 Old myocardial infarction; J44.9 Chronic obstructive pulmonary disease, unspecified; C61 Malignant neoplasm of prostate; C79.51 Secondary malignant neoplasm of bone; I11.0 Hypertensive heart disease with heart failure; I50.30 Unspecified diastolic (congestive) heart failure; R59.1 Generalized enlarged lymph nodes; E66.01 Morbid (severe) obesity due to excess calories; K92.2 Gastrointestinal hemorrhage, unspecified; Z68.35 Body mass index [BMI] 35.0-35.9, adult; Z87.891 Personal history of nicotine dependence; Z86.12 Personal history of poliomyelitis
CPT/HCPCS: 36415; 71045; 71275; 76705; 78452; 80048; 80076; 82040; 82962; 84484; 85025; 85379; 92610; 93005; 93017; 96360; 96361; 96372; 99285; A9502; G0378; J1650; J1815; J2785; J7030; Q9967

== ENCOUNTER 2020-08-14 12:22 | Emergency (ER) | payer MEDICARE ==
[~2020-08-14] VITALS: Ht 175.3 cm; Wt 120.0 kg
[~2020-08-14 12:22] MED LIST changes: +ASCO500T8 PO; +EZET10TA70 PO; +KETO10TA PO
--- NOTE | 2020-08-14 12:37 | NUR ---
BREAK RN: THIS IS A 80 YEAR OLD MALE WHO WAS BIB BY AMBULANCE DUE TO INCREASE SOB, INCREASE OXYGEN DEMAND, (COPD ON 3LNC, C-PAP NOC) AND LOOSE STOOL. PT HAS HOMEHEALTH RN THAT ADVISED HIM TO GO TO ED. PT PLACED ON COLLECTIONS ASSISTANT IRREGULAR WITH PVCS, CONTINOUS SP02 AT 3LNC AT 94%, AND CYCLE VS.
--- NOTE | 2020-08-14 12:41 | NUR ---
BREAK RN: PT HAS A HX OF PROSTATE CA WITH METS TO BONES, COPD, DM II, SLEEP APNEA, HTN, POLIO WHEN HE WAS 8 YEARS OLD
[2020-08-14] MEDS ORDERED: SODIUM CHLORIDE 0.9% 1,000 ML IV ONE (13:00)
[2020-08-14] MEDS ORDERED: SODIUM CHLORIDE FLUSH 10ML SYR IVF ONE (13:00)
[2020-08-14 13:18] LABS: BASOPHILS % (AUTO) 1 % (0-1); EOSINOPHILS % (AUTO) 1 % (1-7); LYMPHOCYTES % (AUTO) 9 % (22-44); MEAN CORPUSCULAR HEMOGLOBIN 27.9 pg (27.5-34.5); MEAN CORPUSCULAR HGB CONC 33.1 g/dL (33.2-36.2); MEAN PLATELET VOLUME 6.3 fL (7.4-10.4); MONOCYTES % (AUTO) 6 % (2-9); NEUTROPHILS % (AUTO) 83 % (42-75); PLATELET COUNT 485 x10^3/uL (130-400); RED BLOOD COUNT 3.91 x10^6/uL (4.38-5.82); RED CELL DISTRIBUTION WIDTH 19.3 % (9.4-14.8)
[2020-08-14 13:29] LABS: ALANINE AMINOTRANSFERASE 13 U/L (12-78); ANION GAP 12 mmol/L (5-15); CALCIUM 9.3 mg/dL (8.5-10.1); CHLORIDE 104 mmol/L (98-107); CREATININE 1.03 mg/dL (0.7-1.3)
[2020-08-14 13:33] LABS: ALKALINE PHOSPHATASE 72 U/L (45-117); BILIRUBIN,TOTAL 0.3 mg/dL (0.2-1.0); MD NO; TOTAL PROTEIN 7.8 g/dL (6.4-8.2); TROPONIN I < 0.015 ng/mL (0.000-0.045)
--- NOTE | 2020-08-14 14:15 | NUR ---
Up to restroom, after walking 100ft room room air sat 95% Provider made aware- to d/c shortly
[2020-08-14 14:30] VITALS: BP 148/79
== END 2020-08-14 14:54 | disposition home or self-care (01) ==
LOC: ED 14:10
DX: R05 Cough (principal); R06.00 Dyspnea, unspecified; R94.31 Abnormal electrocardiogram [ECG] [EKG]; J44.9 Chronic obstructive pulmonary disease, unspecified; E11.9 Type 2 diabetes mellitus without complications; I10 Essential (primary) hypertension; Z88.2 Allergy status to sulfonamides; Z85.46 Personal history of malignant neoplasm of prostate; Z88.6 Allergy status to analgesic agent; Z88.8 Allergy status to other drugs, medicaments and biological substances; Z20.828 Contact with and (suspected) exposure to other viral communicable diseases
CPT/HCPCS: 36415; 71045; 80053; 83605; 83880; 84145; 84484; 85025; 87040; 87635; 93005; 96360; 99285; J7030